=== PATIENT | female | born 1995 ===

== ENCOUNTER 2016-05-24 03:02 | Inpatient (IN) | payer MEDICAID ==
[2016-05-24] MEDS ORDERED: SODIUM CHLORIDE 0.9% FLUSH 20 ML ONE (07:28)
[2016-05-24] MEDS ORDERED: IV START KIT ONE (07:28)
[2016-05-24] MEDS ORDERED: MINERAL OIL 25 ML BOT ONE (07:28)
[2016-05-24] MEDS ORDERED: OXYTOCIN 10 UNITS/ML VIAL ONE (07:28)
[2016-05-24] MEDS ORDERED: LIDOCAINE 1% (PRES FREE) 30 ML VIAL ONE (07:29)
[2016-05-24] MEDS ORDERED: PUMP TUBING ONE (07:29)
[2016-05-24] MEDS ORDERED: OXYTOCIN IN LR 500 ML IV ONE ×3 (07:29→08:06)
[2016-05-24] MEDS ORDERED: LIDOCAINE Viscous 2% 15 ML UDCUP ONE (07:29)
[2016-05-24 08:03] VITALS: BMI 40.1
[2016-05-24 08:55] LABS: HEMATOCRIT 36.4 % (37.0-47.0); MEAN CELL VOLUME 84.8 fl (81.0-99.0); RED CELL DISTRIBUTION WIDTH 14.8 % (11.5-14.5)
[2016-05-24] MEDS ORDERED: LACTATED RINGERS 1,000 ML IV SCH (14:15)
[2016-05-24] MEDS: OXYTOCIN IN LR 500 ML IV PRN ×2 (14:30→16:03)
--- NOTE | 2016-05-24 15:19 | PCMAN ---
OB Admission Note - History : 4 Term: 1 : 0 Abortions (S&E): 2 Livin EDC:: 05/27/16 Gestational Age (weeks): 39 Days (#/7): 4 Admit Cervical Dilation:: 5.5 Admit Cervical Effacement (%):: 90 Admit Station:: -1 Admit Presentaton:: vertex Membrane Status: Intact Labor Onset (Date): 05/24/16 Labor Onset (Time): 06:35 Contractions: Yes Contraction Frequency:: q2-4min Heart Rate:: 130 Status:: Cat I Summary of Course:: 21 yo c/o UCs. PNC: Started at 14 wks. Dated by LMP, c/w 21 and 38 wk u/s. PNC signif for pre- preg obesity, BMI 42 and developed anemia which was treated w . OBHx: ' Sab 6 wks '14? Sab 11wks '15 term PMH: Migraine childhood varicella PSH: none SocHx: no tob/etoh/drugs FHx: Asthma-mom DM-MGM IZ Hx: Influenza (IM) Preservative Free 02/21/2016 Tdap - Labs Blood Type: O (+) positive (ab neg) Hct/Hgb:: 11.5 Rubella Status: Immune GBS Status: Negative Abnormal Labs: None Other Labs:: HIV NR HBsAg NR Syphilis neg GD neg Chlam neg Quad neg - Review of Systems No ELISE, change in vision, RUQ pain or nondependent edema - Physical Exam General: Afebrile, No Acute Distress Psych/Mental Status: Mood/Affect Appropriate Neurological: Grossly Intact, Alert, Normal Gait, Normal Speech HEENT: Atraumatic, Mucous membr. moist/pink Lungs: Clear to Auscultation Bilaterally Cardiovascular: Regular Rate and Rhythm Abdomen: Other (gravid, obese) Genitourinary: Normal Female Genitalia Extremities: Full ROM Skin: Normal Color, Warm, Dry - Problems (1) Active labor at term Status: Acute Code: [id number]/Plan: 21 yo at 39 4/7 wks here w early active labor Admit Expectant mgmt Plans IV pain meds
--- NOTE | 2016-05-24 15:23 | PDOC36 ---
Provider Note Subject: Add: Note: S: UCs seem to be spacing, but seem more painful. No longer w back pain. O: AVSS FHT: 135, Cat I [place]: q8 SVE: 5.5/90/-1 A/P: IUP in labor Lack of progress likely due to spaking of UCs Will augment w Pitocin
[2016-05-24] MEDS ORDERED: BUTORPHANOL TARTRATE 1 MG/ML VIAL IV ONE (16:57)
--- NOTE | 2016-05-24 17:04 | PDOC36 ---
Provider Note Subject: Add Note: S: wants to know if her cx is changing. more painful w UCs. would like iv pain med if still an option O: AVSS SVE: /-1 FHT: 130s, Cat I [place]: q 2-3 A/P: Augmentation of labor Cont Pit (3mu/min) IV pain meds per pt request expt mgmt
[2016-05-24] MEDS ORDERED: DOCUSATE SODIUM 100 MG CAPSULE PO PRN (18:56)
[2016-05-24] MEDS ORDERED: LANOLIN 50 APPLIC/7G TUBE TP PRN (18:56)
[2016-05-24] MEDS ORDERED: HYDROCODONE/ACETAMINOPHEN 5/325MG TABLET PO PRN (18:56)
[2016-05-24] MEDS ORDERED: IBUPROFEN 800 MG TABLET PO PRN (18:56)
[2016-05-24] MEDS ORDERED: MAGNESIUM HYDROXIDE 30 ML UDCUP PO PRN (18:56)
[2016-05-24] MEDS ORDERED: CALCIUM CARBONATE 500 MG TAB.CHEW PO PRN (18:56)
[2016-05-24] MEDS ORDERED: SENNOSIDES 8.6 MG TABLET PO PRN (18:56)
[2016-05-24] MEDS ORDERED: BENZOCAINE/MENTHOL 60 APPLIC/BOT TP PRN (18:56)
--- NOTE | 2016-05-24 19:13 | PCMDEL ---
Delivery Note - Labor 1st stage (hr/min):: 1hr 22min 2nd stage (hr/min):: 0hr 3min 3rd stage (hr/min):: 0hr 5min Total (hr/min):: 3hr 0min Pushed (hr/min):: 0hr 3min - Delivery Delivery (Date): 05/24/16 Delivery (Time): 18:20 Gender: Male Presentation: Cephalic Position: OA Umbilical Cord: 3 Vessel Delayed Cord Clamping:: 2-3 min 1 Minute Total: 9 5 Minute Total: 9 Placenta:: complete and intact EBL:: 200ml Perineum:: skid rosado ML vagina at introitus, and L vag wall Suture:: n/a Anesthesia/Meds:: Stadol @ 1703 Length ROM:: 1hr 30min Comments:: vigorous male after presenting w complex R hand presentation, and delivery of R arm. Delayed 3v cord clamping, 2 min. Active 3rd stage, w IV Pitocin. Vag and perineum inspected and notable for 2 moderate skidmarks ML vag and L vag wall. FF w massage. Mom and baby bonding skin to skin.
[2016-05-25 07:09] LABS: HEMATOCRIT 32.3 % (37.0-47.0); HEMOGLOBIN 10.7 gm/l (12.0-16.0)
--- NOTE | 2016-05-25 09:52 | PDOC44 ---
- Subjective Day: 1 Reports Pain Tolerable - Objective Temp Pulse Resp BP Pulse Ox 98.5 F 71 16 95/54 05/25/16 02:19 05/25/16 02:19 05/25/16 02:19 05/25/16 02:19 Lab Results 05/25/16 06:20 Hgb 10.7 L Hct 32.3 L Current Medications Generic Name Dose Route Start Last Admin Trade Name Freq PRN Reason Stop Dose Admin Acetaminophen/Hydrocodone Bitart 1 - 2 tab 05/24/16 18:56 Ramey 5/325 PO Q4H PRN Pain (Moderate) Benzocaine/Menthol 1 applic 05/24/16 18:56 Dermoplast TP PRN PRN Patient Comfort Calcium Carbonate/Glycine 500 - 1,000 mg 05/24/16 18:56 Tums PO BID PRN Indigestion Docusate Sodium 100 mg 05/24/16 18:56 Colace PO DAILY PRN Comfort Emollient Ointment 1 applic 05/24/16 18:56 Fob-[id number]-[id number] TP PRN PRN sore nipples Ibuprofen 800 mg 05/24/16 18:56 05/24/16 20:41 Motrin PO 800 mg Q6H PRN Administration Pain (Mild) Magnesium Hydroxide 30 ml 05/24/16 18:56 Milk Of Magnesia PO BEDTIME PRN Constipation Senna 17.2 mg 05/24/16 18:56 Senokot PO BEDTIME PRN Comfort Sodium Chloride 10 ml 05/24/16 18:56 Normal Saline 10ml Flush IV PRN PRN IV Flush Sodium Chloride 10 ml 05/25/16 01:00 05/25/16 04:48 Normal Saline 10ml Flush IV Not Given Q8HR NEETU - Physical Exam General: Afebrile Psych/Mental Status: Bonding Well Neurological: Oriented x 4 HEENT: Mucous membr. moist/pink Lungs: Clear to Auscultation Bilaterally, Normal Air Movement Cardiovascular: Regular Rate and Rhythm Fundus: Firm, Below Umbilicus Abdomen: Normal Bowel Sounds - Problems:Assessment/Plan (1) Acute blood loss anemia Status: AcuteAssessment/Plan: Hgb is 10.7 (2) Vaginal delivery Status: AcuteAssessment/Plan: Doing well Exam is normal Continue routine care
[2016-05-26 07:53] VITALS: BP 109/52
--- NOTE | 2016-05-26 09:52 | PDOC39B ---
Hospital Course: ADMIT DATE: 05/24/16 DISCHARGE DATE: 05/26/16 ADMISSION DIAGNOSES: term iup, active labor, obesity PROCEDURES: HISTORY OF PRESENT ILLNESS: 21 year old G4 T1 L1 at 39 weeks 4 days presenting with active labor. HOSPITAL COURSE: The patient presented in active labor had augmentation of labor with pit and delivered a vigorous male infant without need for perineal repair. By day of discharge the patient is ambulating, eating, voiding, and passing flatus without difficulty. Pain is controlled and lochia is appropriate. She is breast feeding. - Physical Exam Vital Signs: Temp Pulse Resp BP Pulse Ox 97.9 F 71 18 109/52 05/26/16 07:50 05/26/16 07:50 05/26/16 07:50 05/26/16 07:50 General: Afebrile, No Acute Distress Psych/Mental Status: Mood/Affect Appropriate, Judgment/Insight Intact, Bonding Well Neurological: Alert, Oriented x 4 Lungs: Clear to Auscultation Bilaterally Cardiovascular: Regular Rate and Rhythm, No Murmur Breast: Soft, Skin intact Fundus: Firm, Midline, At Umbilicus Abdomen: Normal Bowel Sounds Extremities: Full ROM, No Edema Skin: Normal Color, Warm, Dry, Intact, No Rash - Discharge Diagnosis (1) Acute blood loss anemia Status: AcuteAssessment/Plan: Hgb is 10.7, asymptomatic, continue PNV as breast feeding. (2) Vaginal delivery Status: AcuteAssessment/Plan: Doing well Exam is normal Continue routine care and dc home today. nexplanon/iud for bc at 6 week check. - Discharge Plan Condition: Good Disposition: Home Prescriptions: Docusate Sodium [Colace] 100 mg PO DAILY #30 cap Ibuprofen [IBUPROFEN 600 MG TABLET (SHF)] 1 tab PO Q6H PRN #30 tablet PRN Reason: Pain Follow-Up: Sheyla Hoyt MD [Staff Physician] - In 6 weeks
== END 2016-05-26 11:30 | disposition home or self-care (01) | DRG 775 ==
LOC: FBC 03:02 → FBCOUT 03:02 → FBC 06:50 → FBCOUT 06:50
PROVIDERS: ADMIT Family Medicine; ATTEND Family Medicine
PROC: 10E0XZZ Delivery of Products of Conception, External Approach (ICD-10-PCS; principal; 2016-05-24)
PROC: 0HQ9XZZ Repair Perineum Skin, External Approach (ICD-10-PCS; 2016-05-24)
DX: O99.214 Obesity complicating childbirth (principal); D62 Acute posthemorrhagic anemia; E66.9 Obesity, unspecified; O09.43 Supervision of pregnancy with grand multiparity, third trimester; O62.3 Precipitate labor; O99.02 Anemia complicating childbirth; Z3A.39 39 weeks gestation of pregnancy; Z37.0 Single live birth